=== PATIENT | male | born 1960 | race Caucasian/White ===

== ENCOUNTER → 2020-03-04 | Outpatient (CLI) | payer OTHER | END | disposition home or self-care (01) | LOC: LABPAT 15:44 | PROVIDERS: ATTEND Student in an Organized Health Care Education/Training Program | DX: Z01.812 Encounter for preprocedural laboratory examination (principal); U07.1 COVID-19 | CPT/HCPCS: U0003; C9803 ==

== ENCOUNTER 2020-03-11 09:12 | Day surgery (SDC) | payer OTHER ==
[2020-03-10 13:26] VITALS: BMI 26.4
[~2020-03-11 09:12] MED LIST: DEXAMETHASONE SOD PHOSPHATE 4 MG/ML 1 ML VIAL IV ONE; HEPARIN SODIUM,PORCINE 5,000 UNIT/ML 1 ML VIAL SQ ONE; LACTATED RINGERS 1,000 ML IV SCH; LIDOCAINE 1% (10MG/ML) FOR IV START INTRADERMA PRN; MIDAZOLAM 2 MG/2 ML VIAL IV PRN; ONDANSETRON 4 MG/2 ML VIAL IVP ONE
[2020-03-11] MEDS ORDERED: LIDOCAINE 1% INJ 10MG/ML (20 ML MDV) ONE (10:58)
[2020-03-11] MEDS ORDERED: SUCCINYLCHOLINE CHLORIDE 100 MG/5 ML SYR IV ONE (10:58)
[2020-03-11] MEDS ORDERED: ROPIVACAINE 5 MG/ML 30 ML VIAL ONE (10:58)
[2020-03-11] MEDS ORDERED: DEXAMETHASONE SOD PHOSPHATE 4 MG/ML 1 ML VIAL ONE (10:58)
[2020-03-11] MEDS ORDERED: PROPOFOL 10 MG/ML 20 ML VIAL IV ONE (10:58)
[2020-03-11] MEDS ORDERED: GLYCOPYRROLATE 0.2 MG/ML 2 ML VIAL ONE (10:58)
[2020-03-11] MEDS ORDERED: NEOSTIGMINE 1 MG/ML 10 ML VIAL ONE (10:58)
[2020-03-11] MEDS ORDERED: MIDAZOLAM 2 MG/2 ML VIAL ONE (10:58)
[2020-03-11] MEDS ORDERED: ROCURONIUM 10 MG/ML (10 ML VIAL) IV ONE (10:58)
[2020-03-11] MEDS ORDERED: LIDOCAINE 1%-EPI 1:100,000 20 ML VIAL SQ ONE ×2 (11:35)
--- NOTE | 2020-03-11 12:22 | P.ANPRN ---
Procedure Note - Anesthesia - Nerve Block Performed Bilateral Transversus Abdominis Single Time Out Performed: Yes Date of Procedure: 03/11/20 Procedure Start Time: 10:33 Procedure Stop Time: 10:40 Location of Patient: PreOp Indication: Acute Post-Operative Pain, Requested by Surgeon Sedation Type: Sedate with meaningful contact maintained Preparation: Sterile Prep Position: Supine Needle Types: Pajunk Needle Gauge: 21 Ultrasound used to visualize needle placement: Yes Ultrasound used to observe medication spread: Yes Blood Aspirated: No Pain Paresthesia on Injection Noted: No Resistance on Injection: Normal Image Stored and Saved: Yes Events: Uneventful and Well Tolerated (ropi .5% 20cc plus dexamethasone 4mg bilaterally)
[2020-03-11 12:31] VITALS: TEMP 96.9
[2020-03-11] MEDS: HYDROmorphone 0.5 MG/0.5 ML SYRINGE IVP PRN ×2 (12:34→12:41)
--- NOTE | 2020-03-11 12:39 | P.OP ---
Date of Procedure: 03/11/20 Preoperative Diagnosis: Bilateral inguinal hernia Postoperative Diagnosis: Bilateral inguinal direct hernia Procedure(s) Performed: Robotic bilateral inguinal hernia repair with mesh Anesthesia: LIZETTE Surgeon: Amita Wilson Pathology: none sent Condition: stable Disposition: same day Indications for Procedure: 59-year-old male presented to the surgical office with complaints of groin pain. On exam, he was found to have bilateral inguinal hernias. Patient did request repair. Patient was excellent the risks, benefits and alternatives to the procedure did provide consent prior to attending the operating suite. Operative Findings: Bilateral direct inguinal hernias Description of Procedure: The patient was brought to the operating suite and placed in supine position. General endotracheal anesthesia was induced. Arms were then tucked to the sides bilaterally and all pressure points were padded. SCDs were also placed in his bilateral lower extremities and were working throughout the entire case. Preoperative antibiotics were given prior to the incision. A timeout was performed with all team members agreement with correct patient, procedure and location. A super umbilical incision was made approximately 20 cm superior to the pubic symphysis. The abdomen was then entered. At this point, pneumoperitoneum was achieved. 2 additional incisions were made approximately 11 cm lateral to the super umbilical incision and 8 mm trochars were placed. The patient was then placed in Trendelenburg position and the hernia sites were clearly visualized bilaterally. Both hernias were noted as direct inguinal hernias. The robot was then docked appropriately. Incision was then made just lateral to the medial umbilical ligament on the right side with the monopolar scissors and the peritoneal flap was created and was taken down towards Jakub's ligament. The flap was then extended laterally. Attention was then turned to the direct inguinal hernia. The sac was then freed from the surrounding structures, including the cord structures. At this point the direct hernia was reduced. Attention was then turned towards the left side. Incision was made just lateral to the medial umbilical ligament on the left side with the monopola r scissors and the peritoneal flap was created and was taken down towards Jakub's ligament. The flap was then extended laterally. Attention was then turned to the direct inguinal hernia. The sac was freed from the surrounding structures. Once the entire space was appropriately dissected out, laparoscopic parietex progrip meshes were unrolled over the bilateral hernia sites. Once appropriately in place, the peritoneal flaps were closed using running 2-0 V lock suture. Once this was completed we removed all the robotic instruments and undocked the robot. The super umbilical fascial incision was closed with 0 Vicryl suture using a Phil Caro device under direct visualization. All skin incisions were then closed with 4-0 Vicryl suture. The patient was awakened and taken to recovery unit in stable condition.
[2020-03-11] MEDS ORDERED: KETOROLAC 15 MG/ML 1 ML VIAL IVP ONE (12:47)
[2020-03-11] MEDS ORDERED: LACTATED RINGERS 1,000 ML IV ONE (13:03)
[2020-03-11 13:25] VITALS: RESP 16
[2020-03-11 13:30] VITALS: BP 136/78; PULSE 64
== END 2020-03-11 14:10 | disposition home or self-care (01) ==
LOC: OR 09:12
PROVIDERS: ATTEND Surgery
DX: K40.20 Bilateral inguinal hernia, without obstruction or gangrene, not specified as recurrent (principal); E78.5 Hyperlipidemia, unspecified; Z90.89 Acquired absence of other organs; Z79.899 Other long term (current) drug therapy; Z80.41 Family history of malignant neoplasm of ovary; Z82.49 Family history of ischemic heart disease and other diseases of the circulatory system; Z83.49 Family history of other endocrine, nutritional and metabolic diseases
CPT/HCPCS: 49650; S2900; 64488

== ENCOUNTER → 2023-11-15 | Outpatient (CLI) | payer MEDICARE ==
--- NOTE | 2023-11-15 15:42 | CA ---
Stress Echo Report Leonardo Ding Age: 63 Gender: M : 1960 Exam Date: 11/15/2023 09:23 Exam Location: [facility] Ht (in): 71 Wt (lb): 216 Ordering Physician: Nathalia Rinaldi DO Referring Physician: Geena Armstrong Weed Cooking Operator: Brit Pena RDCS Technologist Procedure CPT: Indication: R94.31 R55 SYNCOPE AND COLLAPSE ICD-9 Codes: Rhythm: Patient History: HYPERCHOLESTEROLEMIA, SYNCOPE AND COLLAPSE Cardiac Medications: ATORVASTATIN Medications in past 24 hours: Contrast: Definity Stress Results Protocol: Iglesia Total dose(mL): 3 Exercise Duration (min:sec): 11:[address] Depression (mm): Angina Score: Pierre Score: METS: 12.1 Resting HR: 72 Resting BP: 142 / 86 Peak HR: 148 Peak BP: 205 / 80 Max Predicted HR: 155 95 % Max Predicted HR Target HR: 132 Double Product: [id number] Stress Summary: BP Response: Reason for Termination: MAX EXERTION/TARGET HR Cardiac Symptoms: NO SYMPTOMS ECG Analysis Resting ECG: Stress ECG: Arrhythmia: Echo Analysis Resting Echo: Peak Echo Analysis: MEASUREMENTS (Male/Female) Normal Values CONCLUSIONS Patient underwent exercise stress echo with a Iglesia protocol treadmill stress test. Patient exercised into Stage 4 for a total of 11 minutes and 8 seconds reaching a total of 12.1 METS. Patient's maximum heart rate was 148 which represented 95% age- predicted maximum heart rate. Stress EKG portion: At baseline patient's EKG showed normal sinus rhythm, normal axis, no significant ST or T wave abnormalities. At peak exercise, EKG showed no significant change from baseline. Stress echo portion: 2-D echocardiogram was performed in the parasternal long, personal short, apical 2 and apical four-chamber views at rest, peak exercise and in recovery. At baseline, echocardiogram showed left ventricular ejection fraction 55% without wall motion abnormalities. With peak exercise, echocardiogram shows improvement in left ventricular ejection fraction, increase contractility, decrease in left ventricular end systolic dimension without wall motion abnormalities consistent with a normal response to exercise. Conclusions: 1. Normal EKG and echo response to exercise without evidence of inducible ischemia. 2. Excellent exercise capacity. Dr. Jose Cruz Seymour DO (Electronically Signed) Final Date: 15 November 2023 15:41
--- NOTE | 2023-11-15 21:57 | US ---
EXAMINATION TYPE: US carotid duplex BILAT DATE OF EXAM: 11/15/2023 COMPARISON: NONE CLINICAL INDICATION: Male, 63 years old with history of R55 SYNCOPE; Syncope TECHNIQUE: Carotid duplex ultrasound examination. Indirect Doppler criteria was utilized. FINDINGS: EXAM MEASUREMENTS: RIGHT: Peak Systolic Velocity (PSV) cm/sec ----- Right CCA: 97.3 ----- Right ICA: 116.2 ----- Right ECA: 94.4 ICA/CCA ratio: 1.2 RIGHT: End Diastole cm/sec ----- Right CCA: 24.6 ----- Right ICA: 27.5 ----- Right ECA: 14.4 LEFT: Peak Systolic Velocity (PSV) cm/sec ----- Left CCA: 82.7 ----- Left ICA: 65.3 ----- Left ECA: 74.6 ICA/CCA ratio: 0.8 LEFT: End Diastole cm/sec ----- Left CCA: 25.8 ----- Left ICA: 27.0 ----- Left ECA: 7.6 VERTEBRALS (direction of flow): Right Vertebral: Antegrade Left Vertebral: Antegrade Rhythm: Normal MUSIC TYPOGRAPHER NOTES: No significant stenosis seen IMPRESSION: No significant flow-limiting stenosis based on velocities Criteria for Assigning % of Stenosis / Diameter reduction (Estimation based on the indirect measurements of the internal carotid artery velocities (ICA PSV). 1. Normal (no stenosis)=ICA PSV < 125 cm/s: ratio < 2.0: ICA EDV<40 cm/s. 2. Less than 50% stenosis=ICA PSV < 125 cm/s: ratio < 2.0: ICA EDV<40 cm/s. 3. 50 to 69% stenosis=ICA PSV of 125 to 230 cm/s: ration 2.0 ? 4.0: ICA EDV 40-100 cm/s. 4. Greater than 70% stenosis to near occlusion= ICA PSV > 230 cm/s: ratio > 4.0: ICA EDV > 100 cm/s. 5. Near occlusion= ICA PSV velocities may be low or undetectable: variable ratio and ICA EDV. 6. Total occlusion=unable to detect flow.
== END | disposition home or self-care (01) ==
LOC: RADNMMAIN 08:59
PROVIDERS: ATTEND Family Medicine
DX: R94.31 Abnormal electrocardiogram [ECG] [EKG] (principal); R55 Syncope and collapse; R06.02 Shortness of breath
CPT/HCPCS: 93880; C8930; Q9957; 93351